=== PATIENT | female | born 1955 | race Caucasian/White ===

== ENCOUNTER 2023-10-04 22:03 | Inpatient (IN) | payer MEDICARE, SELFPAY ==
[2023-10-04 15:33] VITALS: BP 117/60
[2023-10-04 15:59] LABS: % Basophils 0.4 % (0-2); % Eosinophils 1.1 % (0-6); % Immature Granulocytes 0.6 % (0-0.5); % Lymphocytes 16.4 % (20.5-51.1); % Monocytes 8.9 % (1.7-9.3); % Neutrophils 72.6 % (42.2-75.2); Absolute Eosinophils 0.1 10^3/uL (0-0.7); Absolute Immature Granulocytes 0.1 10^3/uL (0-0.05); Absolute Lymphocytes 1.5 10^3/uL (1.2-3.4); Absolute Monocytes 0.8 10^3/uL (0.1-0.6); Absolute Neutrophils 6.7 10^3/uL (1.4-6.5); Hematocrit 33.7 % (37.0-47.0); Hemoglobin 11.5 g/dL (12.0-16.0); Mean Corp Hgb Conc. 34.1 g/dL (33.0-37.0); Mean Corpuscular Hgb 29.9 pg (27.0-31.0); Mean Corpuscular Volume 87.5 fL (81.0-99.0); Mean Platelet Volume 9.4 fL (7.4-10.4); Nucleated Red Blood Cells % 0 %; Platelet Count 246 10^3/uL (130-400); Red Blood Cell Count 3.85 10^6/uL (4.20-5.40); Red Cell Dist. Width 12.7 % (11.5-14.5); White Blood Cell Count 9.3 10^3/uL (4.8-10.8)
[2023-10-04 16:04] LABS: Lactic Acid 1.7 mmol/L (0.7-2.0)
[2023-10-04 16:15] LABS: ALT (SGPT) 24 U/L (0-35); AST (SGOT) 22 U/L (14-36); Albumin 4.1 g/dl (3.5-5.0); Alkaline Phosphatase 74 U/L (38-126); Blood Urea Nitrogen 32 mg/dl (7-17); Calcium 9.6 mg/dl (8.4-10.2); Carbon Dioxide 23 mmol/L (22-30); Chloride 97 mmol/L (98-107); Glucose 122 mg/dl (70-99); Potassium 3.9 mmol/L (3.5-5.1); Sodium 131 mmol/L (135-145); Total Bilirubin 0.5 mg/dl (0.2-1.3); Total Protein 7.1 g/dl (6.3-8.2); eGFR > 60.00
[2023-10-04 19:48] VITALS: BMI 35.2
[2023-10-04 19:49] VITALS: BP 147/68
--- NOTE | 2023-10-04 19:53 | ED.SKININJ ---
HPI-Injury
General
Chief Complaint: Bite
Source: patient
Exam Limitations: none
Time Seen by Provider: 10/04/23 19:40
Nursing documentation reviewed up to this point in time: agreed with
Travel History
Have you had any contact with someone who has COVID-19?: No
Do you have any symptoms of coronavirus? Fever > 100 degrees, chills, cough, shortness of breath, sore throat, loss of taste or smell, muscle aches, or headache?: No
History of Present Illness-Injury
Is this injury a work related problem?: No
Is pt an associate of [facility]?: No
Initial Injury comments:
Patient to ED with complaint of pain redness swelling and drainage to left forearm. According to patient she was bit by her cat. Sustained 2 punctures to her left dorsal forearm. Over the weekend the area began to get red and swollen. She was
evaluated at and placed on zithromax. States are continues to worsen. She reports a low grade fever. No chills. Cat is UTD with rabies series, she is UTD with Td. Brought self to ED.
Past History
Past History
ED Past Medical History: HTN and NIDDM
Review of Systems
Review of Systems
Allergies reviewed?: Yes
All Other Systems: ROS reviewed and negative except as documented in HPI and ROS
Constitutional: Reports fever (reports low grade temp (100.2) at home)
Musculoskeletal: Reports joint pain (pain to left forearm)
Skin: Reports other (2 punctures noted left dorsal forearm. +swelling and discharge. Surrounding erythema. )
Neurological: Reports no symptoms
Psychiatric: Reports no symptoms
Skin Exam
Bite
Left Lower Dorsal Arm:
Type: animal
Skin has: puncture wounds
Surrounding area around bite has: marked local erythema and draining purulent fluid
Distal skin color and temperature: normal-warm & good color
Normal distal neurovascular exam: Yes
Phy Exam
General Physical Exam
General Presentation: well appearing and mild distress
General age: appears stated age
General Skin: warm and dry
General Habitus: normal
General Mental: alert
Musculoskeletal Exam
Musculoskeletal Exam: full ROM and neuro vasc intact
Skin Exam
Skin Exam: warm/dry and other (cat bite to left forearm with pain swelling erythema drainage. Culture obtained.)
Psychiatric Exam
Psychiatric Exam: normal mood/affect
Course
Orders/Labs/Results
Orders:
Orders
10/04/23 15:46
Complete Blood Count/With Diff Urgent
Comprehensive Metabolic Panel Urgent
Lactic Acid Q4H
Comment: ON ICE, CANCEL 2ND ORDER IF FIRST LACTIC ACID LEVEL <2
Blood Culture Q30M
YUE Source: Blood/Venous
Specimen Description:
Comment: FROM 2 SEPARATE SITES
10/04/23 19:48
Forearm, Left 2 View [CR Forearm - Left 2 View] Urgent
Comment:
Reason For Exam: cellulitis
10/04/23 19:59
Blood Culture Q30M
YUE Source: Blood/Venous
Specimen Description:
Comment: FROM 2 SEPARATE SITES
Wound Culture [Wound/Abscess/Other Culture] Urgent
YUE Source: Arm
Specimen Description: Left
Date Specimen was Collected: 10/04/23
Time Specimen was Collected: 19:54
10/04/23 20:08
Ampicillin/Sulbactam 3 G [Unasyn] 3 gm 0.9% Sodium Chloride 100 ml [Nss] 100 ml IV NOW
10/04/23 21:01
Naproxen [Naprosyn] 500 mg PO NOW STA
10/04/23 21:04
Admit/Transfer Patient As Directed
Co-Sign Provider:
Level of Care: Inpatient admission
Assign to:: Medical/Surgical
Physician / Group: karyn
Diagnosis: cat bite cellulitis
Reason for Hospitalization: cat bite cellulitis
Expected length of stay greater than two midnights?: Yes
ELOS- Estimated Length of Stay in days: 2
I certify the patient meets the requirements for IP care: Yes
Code Status As Directed
Resuscitation Status: Full Code
Abnormal Lab Results
10/04/23
15:46
RBC 3.85 L 10^6/uL
(4.20-5.40)
Hgb 11.5 L g/dL
(12.0-16.0)
Hct 33.7 L %
(37.0-47.0)
Abs Immat Gran (auto) 0.1 H 10^3/uL
(0-0.05)
Absolute Neuts (auto) 6.7 H 10^3/uL
(1.4-6.5)
Absolute Monos (auto) 0.8 H 10^3/uL
(0.1-0.6)
Immature Gran % 0.6 H %
(0-0.5)
Lymphocytes % 16.4 L %
(20.5-51.1)
Sodium 131 L mmol/L
(135-145)
Chloride 97 L mmol/L
(98-107)
BUN 32 H mg/dl
(7-17)
Glucose 122 H mg/dl
(70-99)
10/04/23 15:46
10/04/23 15:46
Vital Signs
Initial and Last Documented VS:
Initial Vital Signs
Temp Pulse Resp BP Pulse Ox
99.9 F 98 98 117/60 98
10/04/23 15:33 10/04/23 15:33 10/04/23 15:33 10/04/23 15:33 10/04/23 15:33
Last Documented Vital Signs
Temp Pulse Resp BP Pulse Ox
99.9 F 98 98 125/69 96
10/04/23 15:33 10/04/23 15:33 10/04/23 15:33 10/04/23 21:39 10/04/23 21:00
*Radiology
Radiology exam reviewed: radiology read reviewed
*Pulse Oximetry
Patient hypoxic: no
*Critical Care Note
Total Time (30-74mins, 75-104mins- exclusive of procedures): Not Applicable
ED Attending Note
-
Portions of this chart may have been created with voice recognition software.� Occasional wrong word or��sound alike� substitutions may have occurred due to the inherent limitations of voice recognition software.
Discharge Plan
Departure
Patient Disposition: Admit
Date of Disposition: 10/04/23
Time of Disposition: 19:59
Presentation/result/management discussed w/ accepting MD/DO: Hospitalist
Patient with high blood pressure during this ER visit?: No
Condition: Fair
Discharge Problem:
Cellulitis of forearm, left, Cat bite of left forearm
Interventions
Interventions:
*Risk Screen - Suicide Last Done: 10/04/23 19:48
*General Assessment Last Done: 10/04/23 19:48
*Neglect/Abuse Screening Last Done: 10/04/23 19:48
ED- Fall Risk Assessment Last Done: 10/04/23 19:48
*ED COVID-19 Vaccine History Last Done: 10/04/23 19:48
ED-Skin Assessment Last Done: 10/04/23 19:48
[2023-10-04] MEDS: UNASYN IV (20:41)
--- NOTE | 2023-10-04 21:08 | HPS.HSE ---
Family Physician
-
Family Physician: * NONE
Chief Complaint
-
cat bite infection
History of Present Illness
67-year-old female past medical history of hypertension, diabetes, bipolar disorder, restless leg syndrome presenting with pain, redness and swelling and drainage to the left forearm. She was bit by her cat and sustained 2 punctures to the left
dorsal forearm 10 days ago. 3 days ago the area began to get red and swollen. She went to urgent care and was started on Zithromax. Symptoms continue to worsen. She has had low-grade fever without chills.
Cat is up-to-date with rabies series. She is up-to-date with tetanus vaccine.
She is a former smoker. She denies alcohol use.
Medical History
Past Medical History
Past Medical History: Reports Other (hypertension, diabetes, bipolar disorder, restless leg syndrome )
Past Surgical History: Reports None
Social History
Tobacco: Former Smoker
Alcohol: None
Drug: None
Family History
Family History: Not pertinent
Allergies / Home Medications
Allergies reflects when Allergies were last updated in [employer].
Home Medications with original date entered in [facility]
Allergy/Medication List:
Allergies
Allergy/AdvReac Type Severity Reaction Status Date / Time
No Known Allergies Allergy Unverified 10/04/23 15:33
Home Medications
azithromycin 250 mg tablet 250 mg PO DAILY 10/04/23
cariprazine 1.5 mg capsule (Vraylar) 1.5 mg PO DAILY 10/04/23
citalopram 40 mg tablet 40 mg PO HS 10/04/23
glyburide 5 mg-metformin 500 mg tablet 1 tab PO BID 10/04/23
primidone 50 mg tablet 100 mg PO BID 10/04/23
quetiapine 100 mg tablet 200 mg PO HS 10/04/23
ropinirole 2 mg tablet 2 - 3 mg PO BID PRN restless legs 10/04/23
ropinirole 3 mg tablet 3 mg PO HS 10/04/23
semaglutide 0.25 mg or 0.5 mg (2 mg/3 mL) subcutaneous pen injector (Ozempic) 1 mg SC WE 10/04/23
telmisartan 40 mg tablet 40 mg PO DAILY 10/04/23
triamterene 37.5 mg-hydrochlorothiazide 25 mg tablet 1 tab PO DAILY 10/04/23
Review of Systems
-
History Source: Patient
A 12 point ROS was completed and negative except as noted: Yes
Constitutional: Reports No Symptoms
EENT: Reports No Symptoms
Respiratory: Reports No Symptoms
Cardiac: Reports No Symptoms
Abdomen/GI: Reports No Symptoms
: Reports No Symptoms
Musculoskeletal: Reports No Symptoms
Skin: Reports See HPI
Neurological: Reports No Symptoms
Endocrine: Reports No Symptoms
Hematologic/Lymphatic: Reports No Symptoms
Psych: Reports No Symptoms
Physical Exam
Vital Signs
Vital Signs
Temp Pulse Resp BP Pulse Ox
99.9 F 98 98 147/68 99
10/04/23 15:33 10/04/23 15:33 10/04/23 15:33 10/04/23 19:49 10/04/23 19:48
Physical Exam
General: Well Developed, Well Nourished and No Apparent Distress
HEENT: NormoCephalic, Moist mucous membranes and Atraumatic
Respiratory: Clear
Cardiac: S1/S2 and Regular Rhythm; No Murmur or Rub
GI: Soft, Non Tender, Non Distended and Normal Bowel Sounds; No Organomegaly
Rectal: Deferred by Provider
Musculoskeletal: No Clubbing, No Cyanosis and No Edema
Skin: Other (left forearm puncture wound with surrounding erythema , swelling and redness ); No Rash
Neuro: Nonfocal/grossly intact
Laboratory Results
-
10/04/23 15:46
10/04/23 15:46
Laboratory Results
Lactic Acid Cancelled 10/04/23 19:45
Total Bilirubin 0.5 mg/dl (0.2-1.3) 10/04/23 15:46
AST 22 U/L (14-36) 10/04/23 15:46
ALT 24 U/L (0-35) 10/04/23 15:46
Alkaline Phosphatase 74 U/L (38-126) 10/04/23 15:46
Data Reviewed
-
Lab Data: Labs Reviewed by me
Old Records: Reviewed
Impression/Plan
-
IMPRESSION:
PLAN:
# Cat bite cellulitis of left forearm with possible abscess
-Puncture site is open and draining purulent discharge which was expressed at urgent care and continuing to drain
-X-ray of forearm pending
-Blood cultures
-Wound culture
-Unasyn
-Tylenol, Aleve for pain
Essential hypertension
-Continue triamterene/hydrochlorothiazide, telmisartan
Type 2 diabetes
-Continue glyburide, metformin
-Insulin sliding
Bipolar depression
-Continue Seroquel, citalopram, Vraylar
Restless leg syndrome
-Continue ropinirole, primidone
Full code
DVT prophylaxis�heparin
Regular diet
[2023-10-04] MEDS: NAPROSYN 500 MG PO (21:09)
[2023-10-04 21:39] VITALS: BP 125/69
[2023-10-05] VITALS (7 sets, daily range): BP systolic 100–134; BP diastolic 49–78; BMI 34.8
[2023-10-05] MEDS: CELEXA 40 MG PO ×2 (00:25→23:09)
[2023-10-05] MEDS: REQUIP 3 MG PO ×2 (00:25→23:09)
[2023-10-05] MEDS: SEROQUEL 200 MG PO ×2 (00:26→22:26)
[2023-10-05] MEDS: UNASYN IV ×5 (01:53→22:26)
[2023-10-05 06:07] LABS: % Basophils 0.7 % (0-2); % Eosinophils 2.7 % (0-6); % Immature Granulocytes 0.3 % (0-0.5); % Lymphocytes 32.4 % (20.5-51.1); % Monocytes 11.3 % (1.7-9.3); % Neutrophils 52.6 % (42.2-75.2); Absolute Eosinophils 0.2 10^3/uL (0-0.7); Absolute Lymphocytes 1.9 10^3/uL (1.2-3.4); Absolute Monocytes 0.7 10^3/uL (0.1-0.6); Absolute Neutrophils 3.1 10^3/uL (1.4-6.5); Hematocrit 31.2 % (37.0-47.0); Hemoglobin 10.5 g/dL (12.0-16.0); Mean Corp Hgb Conc. 33.7 g/dL (33.0-37.0); Mean Corpuscular Hgb 29.6 pg (27.0-31.0); Mean Corpuscular Volume 87.9 fL (81.0-99.0); Mean Platelet Volume 9.5 fL (7.4-10.4); Nucleated Red Blood Cells % 0 %; Platelet Count 206 10^3/uL (130-400); Red Blood Cell Count 3.55 10^6/uL (4.20-5.40); Red Cell Dist. Width 12.5 % (11.5-14.5); White Blood Cell Count 5.8 10^3/uL (4.8-10.8)
[2023-10-05 06:23] LABS: ALT (SGPT) 20 U/L (0-35); AST (SGOT) 26 U/L (14-36); Albumin 3.6 g/dl (3.5-5.0); Alkaline Phosphatase 57 U/L (38-126); Blood Urea Nitrogen 38 mg/dl (7-17); Calcium 9.4 mg/dl (8.4-10.2); Carbon Dioxide 22 mmol/L (22-30); Chloride 101 mmol/L (98-107); Estimated Creatinine Clearance 75 ml/min; Glucose 97 mg/dl (70-99); Potassium 3.6 mmol/L (3.5-5.1); Sodium 134 mmol/L (135-145); Total Bilirubin 0.7 mg/dl (0.2-1.3); Total Protein 6.5 g/dl (6.3-8.2); eGFR > 60.00
[2023-10-05] MEDS: COZAAR 50 MG PO (09:25)
[2023-10-05] MEDS: GLUCOPHAGE 500 MG PO ×2 (09:26→18:23)
[2023-10-05] MEDS: DYAZIDE 1 CAPSULE PO (09:26)
[2023-10-05] MEDS: HEPARIN 5000 UNITS SC ×2 (09:26→22:26)
[2023-10-05] MEDS: MICRONASE 5 MG PO ×2 (09:27→18:24)
[2023-10-05] MEDS: MYSOLINE 100 MG PO ×2 (09:27→22:26)
--- NOTE | 2023-10-05 09:40 | W.PN.HOSP.TC ---
Today's Communication/Plan
-
I would continue her on IV Unasyn for at least another 24 hours given the appearance of the left forearm and amount of purulent drainage
Does not seem to have systemic involvement
Monitor white count await culture results
Assessment / Plan
Assessment / Plan
67-year-old female past medical history of hypertension, diabetes, bipolar disorder, restless leg syndrome presenting with pain, redness and swelling and drainage to the left forearm. She was bit by her cat and sustained 2 punctures to the left
dorsal forearm 10 days ago. 3 days ago the area began to get red and swollen. She went to urgent care and was started on Zithromax. Symptoms continue to worsen. She has had low-grade fever without chills.
Cat is up-to-date with rabies series. She is up-to-date with tetanus vaccine.
She is a former smoker. She denies alcohol use.
# Cat bite cellulitis of left forearm with possible abscess
-Puncture site is open and draining purulent discharge which was expressed at urgent care and continuing to drain
-X-ray of forearm no evidence of fracture or evidence of bone involvement such as osteomyelitis indicative of cellulitis only
-Blood cultures pending
-Wound culture pending
-Unasyn
-Tylenol, Aleve for pain
Essential hypertension
-Continue triamterene/hydrochlorothiazide, telmisartan
Type 2 diabetes
-Continue glyburide, metformin also on semaglutide
-Insulin sliding
Bipolar depression
-Continue Seroquel, citalopram, Vraylar
Restless leg syndrome
-Continue ropinirole, primidone
Full code
DVT prophylaxis�heparin
Regular diet
Anticipated Discharge: Within 24 hours
Subjective/Interval History
-
Date of Service: October 05, 2023
Pain referred to the left forearm (although less induration and redness is noted still swollen and with draining purulence
Objective Data
-
Labs:
Laboratory Results
10/05/23 10/05/23
05:46 05:47
WBC 5.8
Hgb 10.5 L
Hct 31.2 L
Plt Count 206
Sodium 134 L
Potassium 3.6
Chloride 101
Carbon Dioxide 22
BUN 38 H
Creatinine 0.8
Glucose 97
Calcium 9.4
Total Bilirubin 0.7
AST 26
ALT 20
Alkaline Phosphatase 57
Vital Signs:
Vital Signs
Temp Pulse Resp BP Pulse Ox
97.4 F 74 18 128/71 98
10/05/23 09:21 10/05/23 09:25 10/05/23 09:21 10/05/23 09:25 10/05/23 09:21
Review of Systems
-
History Source: Patient
Respiratory: Reports No Symptoms
Cardiac: Reports No Symptoms
Musculoskeletal: Reports Edema
Skin: Reports Sores
Physical Exam
-
General: Well Developed
HEENT: Normocephalic
Respiratory: Clear to Auscultation
Cardiac: Regular Rhythm
GI: Soft and Nontender
Musculoskeletal: Edema, Left Upper Extrem (Swollen tender erythematous area topical part of left forearm with puncture site of purulent drainage that is expressed with compression)
Skin: Rash and Ulcers
Psych: Calm
Data Reviewed
-
Total Time Spent with Patient (in minutes): 56
Labs: Labs Reviewed by me
[2023-10-05 10:01] LABS: Glucose - Point of Care 137 mg/dl (70-99)
[2023-10-05] MEDS: NOVOLOG FLEXPEN-LOW RESISTANCE SC ×3 (10:06→16:56)
[2023-10-05 13:43] LABS: Glucose - Point of Care 97 mg/dl (70-99)
[2023-10-05 16:55] LABS: Glucose - Point of Care 122 mg/dl (70-99)
[2023-10-05 21:25] LABS: Glucose - Point of Care 76 mg/dl (70-99)
--- NOTE | 2023-10-05 23:14 | PTCARENOTE ---
Patient arrived from ED, able to walk into room without difficulty. Preferred to remain in her own clothing, refused gown. RFA wound red/warm to touch and weeping sanguinous fluid from 2 puncture caputo. Wound cleansed and dressed. Patient
participated in admission/good historian.
[2023-10-06] MEDS: UNASYN IV ×4 (03:49→21:40)
[2023-10-06 06:20] LABS: Hematocrit 31.8 % (37.0-47.0); Hemoglobin 11.1 g/dL (12.0-16.0); Mean Corp Hgb Conc. 34.9 g/dL (33.0-37.0); Mean Corpuscular Hgb 30.2 pg (27.0-31.0); Mean Corpuscular Volume 86.6 fL (81.0-99.0); Mean Platelet Volume 9.6 fL (7.4-10.4); Platelet Count 222 10^3/uL (130-400); Red Blood Cell Count 3.67 10^6/uL (4.20-5.40); Red Cell Dist. Width 12.3 % (11.5-14.5); White Blood Cell Count 6.4 10^3/uL (4.8-10.8)
[2023-10-06 06:40] LABS: Calcium 9.5 mg/dl (8.4-10.2); Carbon Dioxide 28 mmol/L (22-30); Estimated Creatinine Clearance 66 ml/min; eGFR > 60.00
[2023-10-06 06:50] LABS: Blood Urea Nitrogen 39 mg/dl (7-17); Chloride 99 mmol/L (98-107); Glucose 72 mg/dl (70-99); Potassium 3.8 mmol/L (3.5-5.1); Sodium 137 mmol/L (135-145)
[2023-10-06 07:00] VITALS: BP 104/49
[2023-10-06 08:22] LABS: Glucose - Point of Care 119 mg/dl (70-99)
[2023-10-06] MEDS: NOVOLOG FLEXPEN-LOW RESISTANCE SC ×3 (09:01→16:49)
[2023-10-06] MEDS: HEPARIN 5000 UNITS SC ×2 (09:04→21:38)
[2023-10-06] MEDS: GLUCOPHAGE 500 MG PO ×2 (09:04→17:41)
[2023-10-06] MEDS: MICRONASE 5 MG PO ×2 (09:04→17:41)
[2023-10-06] MEDS: DYAZIDE 1 CAPSULE PO (09:04)
[2023-10-06] MEDS: COZAAR 50 MG PO (09:09)
[2023-10-06] MEDS: MYSOLINE 100 MG PO ×2 (09:09→21:39)
--- NOTE | 2023-10-06 11:12 | CM ---
CM met with at bedside
Pt lives alone in a cottage located on her sisters property
Independent, driving, independent adl's. shopping, meals
DME - has cane, does not use
SNF/HH - denies past history
Has ride at d/c
PCP - Dr Fer MADDEN
Pharm - [facility], mail order
CM will follow for d/c needs
Plan - anticipate home no needs vs with HH
[2023-10-06 12:06] LABS: Glucose - Point of Care 76 mg/dl (70-99)
--- NOTE | 2023-10-06 12:32 | CON.GS ---
Consultation
-
Performing Provider: Carol
Reason for Consultation: Left upper extremity abscess
Medical History
-
Chief Complaint: left upper extremity cat bite
History of Present Illness:
Patient is a 67-year-old female who states that she had a cat bite about 2 weeks ago. She was initially treating it with local wound care but then this past weekend it acutely became red, swollen, warm and tender to touch. She went to urgent care
center and was started on a Z-German. Her symptoms progressed despite being on antibiotics she returned to the urgent care and was subsequently referred for emergency department evaluation.
Patient was admitted to the hospital service 10/04/2023. Swelling improving but still present. There is still purulent drainage from the 2 open wounds along the left anterior forearm prompting surgical consultation today for possible drainage.
Past Medical History
Past Medical History: Other (Hypertension, diabetes, bipolar, restless leg syndrome)
Past Surgical History: None
Social History
Tobacco: Former Smoker
Alcohol: None
Family History
Family History: Reviewed & Not Pertinent
Allergies / Home Medications
Allergy/AdvReac Type Severity Reaction Status Date / Time
No Known Allergies Allergy Unverified 10/04/23 15:33
�Medication �Instructions �Recorded �Confirmed �Type
azithromycin 250 mg tablet 250 mg PO DAILY Infection 10/04/23 10/04/23 History
cariprazine 1.5 mg capsule 1.5 mg PO DAILY Neurological 10/04/23 10/04/23 History
(Vraylar) Condition
citalopram 40 mg tablet 40 mg PO HS Mental Health 10/04/23 10/04/23 History
glyburide 5 mg-metformin 500 mg 1 tab PO BID Diabetes 10/04/23 10/04/23 History
tablet
primidone 50 mg tablet 100 mg PO BID tremor 10/04/23 10/04/23 History
quetiapine 100 mg tablet 200 mg PO HS Neurological Condition 10/04/23 10/04/23 History
ropinirole 2 mg tablet 2 - 3 mg PO BID PRN restless legs 10/04/23 10/04/23 History
ropinirole 3 mg tablet 3 mg PO HS Neurological Condition 10/04/23 10/04/23 History
semaglutide 0.25 mg or 0.5 mg (2 1 mg SC WE Diabetes 10/04/23 10/04/23 History
mg/3 mL) subcutaneous pen injector
(Ozempic)
telmisartan 40 mg tablet 40 mg PO DAILY Blood Pressure 10/04/23 10/04/23 History
triamterene 37.5 1 tab PO DAILY Blood Pressure 10/04/23 10/04/23 History
mg-hydrochlorothiazide 25 mg tablet
Review of Systems
-
A 10 point review of systems was completed, and was negative except as per HPI.
Physical Exam
Vital Signs
Temp Pulse Resp BP Pulse Ox
97.8 F 66 18 104/49 98
10/06/23 07:00 10/06/23 07:00 10/06/23 07:00 10/06/23 07:00 10/06/23 07:00
10/05/23 10/06/23 10/07/23
06:59 06:59 06:59
Actual Weight 90.2 kg 88.995 kg
Body Mass Index (BMI) 34.8
Lab Results
10/06/23 05:50
10/06/23 05:50
WBC 6.4 10^3/uL (4.8-10.8) 10/06/23 05:50
Hgb 11.1 g/dL (12.0-16.0) L 10/06/23 05:50
Hct 31.8 % (37.0-47.0) L 10/06/23 05:50
Plt Count 222 10^3/uL (130-400) 10/06/23 05:50
Abs Immat Gran (auto) 0.0 10^3/uL (0-0.05) 10/05/23 05:47
Neutrophils % 52.6 % (42.2-75.2) 10/05/23 05:47
Physical Exam
General: Well Developed, Well Nourished, No Apparent Distress and Comfortable
Respiratory: Non Labored Respirations
Skin: Other (Left upper extremity anterior forearm: 2 puncture wounds through the dermis with fluctuance between them and surrounding induration/erythema. Purulence expressed on palpation.)
Neuro: AO x 3
Psych: Calm
Data Reviewed
-
Radiology: Image Personally Visualized and interpreted (Left upper extremity forearm x-rays: No acute fracture or dislocation. Moderate diffuse soft tissue swelling. No osteomyelitis.)
Assessment / Plan
-
Assessment: 67-year-old female with cat bite and resultant cellulitis/abscess within the subcutaneous tissues.
Given fluctuance and purulent expression on examination between the 2 skin puncture sites recommended bedside incision and drainage for more definitive control of the subcutaneous abscess. Patient in agreement.
The anticipated procedure was fully reviewed in detail with the patient prior to procedure obtaining verbal informed consent.
Plan: Bedside I&D
The area of fluctuance and induration was sterilely prepped with Betadine
10 mL 1% lidocaine with epinephrine utilized for local field block
Utilizing an 11 blade the bridge of tissue between the 2 puncture sites was incised entering into a small but deep subcutaneous abscess cavity which was evacuated and irrigated out with sterile saline.
Saline gauze 4x4 packing and dry gauze dressing applied and wrapped.
New cultures not obtained as emergency department cultures with positive results
Will remove packing and check on I&D site tomorrow
--- NOTE | 2023-10-06 13:34 | W.PN.HOSP.TC ---
Today's Communication/Plan
-
Continue dressing and IV antibiotic, discharge tomorrow on oral antibiotic
Assessment / Plan
Assessment / Plan
67-year-old female past medical history of hypertension, diabetes, bipolar disorder, restless leg syndrome presenting with pain, redness and swelling and drainage to the left forearm. She was bit by her cat and sustained 2 punctures to the left
dorsal forearm 10 days ago. 3 days ago the area began to get red and swollen. She went to urgent care and was started on Zithromax. Symptoms continue to worsen. She has had low-grade fever without chills.
Cat is up-to-date with rabies series. She is up-to-date with tetanus vaccine.
She is a former smoker. She denies alcohol use.
# Cat bite cellulitis of left forearm with possible abscess
-Puncture site is open and draining purulent discharge which was expressed at urgent care and continuing to drain
-X-ray of forearm no evidence of fracture or evidence of bone involvement such as osteomyelitis indicative of cellulitis only
-Blood cultures pending
-Wound culture pending
-Unasyn
-Tylenol, Aleve for pain
10/05
Patient with significant right forearm abscess and fluctuation.
Seen by general surgery status post bedside incision and drainage.
Plan to continue dressing and discharge on oral antibiotics tomorrow.
Essential hypertension
-Continue triamterene/hydrochlorothiazide, telmisartan
Type 2 diabetes
-Continue glyburide, metformin also on semaglutide
-Insulin sliding
Bipolar depression
-Continue Seroquel, citalopram, Vraylar
Restless leg syndrome
-Continue ropinirole, primidone
Full code
DVT prophylaxis�heparin
Regular diet
Anticipated Discharge: Within 24 hours
Subjective/Interval History
-
Date of Service: October 06, 2023
Patient seen and examined at bedside, denies any chest pain or shortness of breath, no abdominal pain, no nausea, no vomiting, no diarrhea or constipation.
Seen by general surgery, status post incision and drainage at bedside.
Continue dressing change and possible discharge tomorrow.
Objective Data
-
Labs:
Laboratory Results
10/06/23
05:50
WBC 6.4
Hgb 11.1 L
Hct 31.8 L
Plt Count 222
Sodium 137
Potassium 3.8
Chloride 99
Carbon Dioxide 28
BUN 39 H
Creatinine 0.9
Glucose 72
Calcium 9.5
Vital Signs:
Vital Signs
Temp Pulse Resp BP Pulse Ox
97.8 F 66 18 104/49 98
10/06/23 07:00 10/06/23 07:00 10/06/23 07:00 10/06/23 07:00 10/06/23 07:00
I&O
10/05/23 10/06/23 10/07/23
06:59 06:59 06:59
Intake Total 720 / 720
Balance 720 / 720
Physical Exam
-
General: Well Developed and No Apparent Distress
HEENT: Normocephalic, Atraumatic and Moist Mucous Membranes
Respiratory: Clear to Auscultation
Cardiac: Regular Rhythm and S1/S2; Negative Murmur, Rub or Gallop
GI: Soft, Nontender, Nondistended and Normal Bowel Sounds; Negative Organomegaly
Rectal: Deferred by Provider
Musculoskeletal: No Clubbing, No Cyanosis, No Edema and Other (Right forearm abscess)
Skin: Negative Rash
Neuro: Nonfocal/Grossly Intact
[2023-10-06] MEDS: NAPROSYN 500 MG PO ×2 (14:22→22:42)
[2023-10-06] MEDS: REQUIP 2 MG PO (14:23)
[2023-10-06 15:00] VITALS: BP 99/50
[2023-10-06 16:27] LABS: Glucose - Point of Care 121 mg/dl (70-99)
[2023-10-06 21:38] LABS: Glucose - Point of Care 110 mg/dl (70-99)
[2023-10-06] MEDS: SEROQUEL 200 MG PO (21:40)
[2023-10-06] MEDS: CELEXA 40 MG PO (21:40)
[2023-10-06] MEDS: REQUIP 3 MG PO (21:40)
[2023-10-06] MEDS: FLUSH (NSS) 2 FLUSH IV (21:41)
[2023-10-06 23:03] VITALS: BP 109/48
[2023-10-07] MEDS: UNASYN IV ×4 (04:24→22:00)
[2023-10-07] MEDS: FLUSH (NSS) 1 FLUSH IV (04:25)
[2023-10-07] MEDS: TYLENOL 650 MG PO ×3 (05:15→22:06)
[2023-10-07 07:30] VITALS: BP 101/55
[2023-10-07 07:47] LABS: Glucose - Point of Care 170 mg/dl (70-99)
[2023-10-07] MEDS: NOVOLOG FLEXPEN-LOW RESISTANCE 1 UNITS SC (08:40)
[2023-10-07] MEDS: MICRONASE 5 MG PO ×2 (08:41→18:35)
[2023-10-07] MEDS: GLUCOPHAGE 500 MG PO ×2 (08:41→18:30)
[2023-10-07] MEDS: HEPARIN 5000 UNITS SC ×2 (08:42→21:58)
[2023-10-07] MEDS: MYSOLINE 100 MG PO ×2 (08:43→21:58)
[2023-10-07] MEDS: COZAAR PO (08:44)
[2023-10-07] MEDS: DYAZIDE PO (08:45)
--- NOTE | 2023-10-07 09:22 | W.PN.GS2 ---
Today's Communication / Plan
-
Dressing changes
Ortho/hand consult
Assessment / Plan
-
Assessment: 67-year-old right hand dominant diabetic female with cat bite 2 weeks ago and resultant cellulitis/abscess within the subcutaneous tissues.
PPD #1 bedside incision and drainage for more definitive control of the subcutaneous abscess.
Difficulty with clenching fist, tendon exposed with purulent drainage. ?tenosynovitis.
Afebrile, no leukocytosis on previous labs
Plan:
Will consult hand surgery to follow given tendon involvement
BID dressing changes
C/W antibiotics
Analgesics prn
Continue heparin sq for VTE ppx
Subjective Data
-
Date of Service: October 07, 2023
Patient seen and examined at bedside with Dr. Garcia. Pain to site with manipulation. Difficulty closing fist. Throbbing discomfort to site.
Objective Data
-
Intake and Output
10/06/23 10/07/23 10/08/23
06:59 06:59 06:59
Intake Total 720 / 720 1000 / 1000
Balance 720 / 720 1000 / 1000
Intake:
Oral fluids 480 / 480 720 / 720
IV fluids (Total) 0 / 0
IV piggybacks 240 / 240 280 / 280
Other:
Number of approximated MODERATE 2 5
amounts of urine
Vital Signs
Temp Pulse Resp BP Pulse Ox
98.2 F 65 18 101/55 99
10/07/23 07:30 10/07/23 08:44 10/07/23 07:30 10/07/23 08:44 10/07/23 07:30
Lab Results
10/06/23 05:50
10/06/23 05:50
Calcium 9.5 mg/dl (8.4-10.2) 10/06/23 05:50
Total Bilirubin 0.7 mg/dl (0.2-1.3) 10/05/23 05:46
AST 26 U/L (14-36) 10/05/23 05:46
ALT 20 U/L (0-35) 10/05/23 05:46
Alkaline Phosphatase 57 U/L (38-126) 10/05/23 05:46
Total Protein 6.5 g/dl (6.3-8.2) 10/05/23 05:46
Albumin 3.6 g/dl (3.5-5.0) 10/05/23 05:46
Physical Exam
-
NAD
Left wrist wound changed. Approx 2' long and tunnelling down to exposed tendon, purulent drainage noted and wound cleansed and repacked.
[2023-10-07] MEDS: TORADOL 10 MG IV ×2 (10:06→16:46)
--- NOTE | 2023-10-07 11:31 | CM ---
Case management following for d/c planning
Chart reviewed and met with pt
PPD #1 bedside incision and drainage of subcutaneous abscess
Consult to hand surgery
Dressing changes 2x/day
antibiotics
CM will follow for d/c needs
Plan - anticipate home with HH
[2023-10-07 11:33] LABS: Glucose - Point of Care 108 mg/dl (70-99)
[2023-10-07] MEDS: NOVOLOG FLEXPEN-LOW RESISTANCE SC (11:38)
--- NOTE | 2023-10-07 15:09 | W.PN.HOSP.TC ---
Today's Communication/Plan
-
Orthopedic consult
Assessment / Plan
Assessment / Plan
67-year-old female past medical history of hypertension, diabetes, bipolar disorder, restless leg syndrome presenting with pain, redness and swelling and drainage to the left forearm. She was bit by her cat and sustained 2 punctures to the left
dorsal forearm 10 days ago. 3 days ago the area began to get red and swollen. She went to urgent care and was started on Zithromax. Symptoms continue to worsen. She has had low-grade fever without chills.
Cat is up-to-date with rabies series. She is up-to-date with tetanus vaccine.
She is a former smoker. She denies alcohol use.
# Cat bite cellulitis of left forearm with possible abscess
-Puncture site is open and draining purulent discharge which was expressed at urgent care and continuing to drain
-X-ray of forearm no evidence of fracture or evidence of bone involvement such as osteomyelitis indicative of cellulitis only
-Blood cultures pending
-Wound culture pending
-Unasyn
-Tylenol, Aleve for pain
10/05
Patient with significant right forearm abscess and fluctuation.
Seen by general surgery status post bedside incision and drainage.
Plan to continue dressing and discharge on oral antibiotics tomorrow.
10/06
Surgery recommending orthopedic consult, pending
Essential hypertension
-Continue triamterene/hydrochlorothiazide, telmisartan
Type 2 diabetes
-Continue glyburide, metformin also on semaglutide
-Insulin sliding
Bipolar depression
-Continue Seroquel, citalopram, Vraylar
Restless leg syndrome
-Continue ropinirole, primidone
Full code
DVT prophylaxis�heparin
Regular diet
Anticipated Discharge: 24 - 48 hours
Subjective/Interval History
-
Date of Service: October 07, 2023
Patient seen and examined at bedside, denies any chest pain or shortness of breath, no abdominal pain, no nausea, no vomiting, no diarrhea or constipation.
Status post incision and drainage and dressing change today
Surgery team recommending orthopedic consult.
Objective Data
-
Vital Signs:
Vital Signs
Temp Pulse Resp BP Pulse Ox
98.2 F 65 18 101/55 99
10/07/23 07:30 10/07/23 08:44 10/07/23 07:30 10/07/23 08:44 10/07/23 07:30
I&O
10/06/23 10/07/23 10/08/23
06:59 06:59 06:59
Intake Total 720 / 720 1000 / 1000
Balance 720 / 720 1000 / 1000
Physical Exam
-
General: Well Developed and No Apparent Distress
HEENT: Normocephalic, Atraumatic and Moist Mucous Membranes
Respiratory: Clear to Auscultation
Cardiac: Regular Rhythm and S1/S2; Negative Murmur, Rub or Gallop
GI: Soft, Nontender, Nondistended and Normal Bowel Sounds; Negative Organomegaly
Rectal: Deferred by Provider
Musculoskeletal: No Clubbing, No Cyanosis, No Edema and Other (Right forearm abscess dressed)
Skin: Negative Rash
Neuro: Nonfocal/Grossly Intact
[2023-10-07 15:12] VITALS: BP 99/51
--- NOTE | 2023-10-07 15:29 | W.PN.UPDATE ---
Addendum entered and electronically signed by John Talley MD 10/07/23 17:16:
Patient seen and examined
The erythema is contained near the wound with no drainage.
There is full AROM of the fingers with no significant pain
Agree with wet to dry and healing by secondary intention.
Recommend BID wet to dry
OK to switch to PO Augmentin
Follow up in the office in 7-10 days upon discharge
Original Note:
Update Note
Progress Note Update
Full orthopedic consult dictated:
Dx: Left forearm cat bite with infection/status post bedside I&D October 06, 2023 by general surgery
Plan: Left forearm wound has bloody drainage with no evidence of purulence today. Erythema improved nicely. She does have full range of motion with flexion and extension at the wrist. She is able to make a near complete composite fist.
Distal neurovascular was intact. She has been afebrile and white count normal. Cultures have grown Pasteurella multocida currently on Unasyn. Wet to dry dressings placed. Multiple pictures sent to Dr. Talley for his input.
[2023-10-07 16:38] LABS: Glucose - Point of Care 213 mg/dl (70-99)
[2023-10-07] MEDS: REQUIP 2 MG PO (16:47)
[2023-10-07] MEDS: NOVOLOG FLEXPEN-LOW RESISTANCE 2 UNITS SC (18:30)
[2023-10-07 21:21] LABS: Glucose - Point of Care 124 mg/dl (70-99)
[2023-10-07] MEDS: CELEXA 40 MG PO (21:59)
[2023-10-07] MEDS: SEROQUEL 200 MG PO (21:59)
[2023-10-07] MEDS: REQUIP 3 MG PO (21:59)
[2023-10-07 23:33] VITALS: BP 108/49
[2023-10-08] MEDS: UNASYN IV ×2 (04:05→09:52)
[2023-10-08] MEDS: TORADOL 10 MG IV (04:06)
[2023-10-08 07:14] VITALS: BP 139/68
[2023-10-08 07:21] LABS: Glucose - Point of Care 130 mg/dl (70-99)
[2023-10-08 07:48] LABS: Hematocrit 31.7 % (37.0-47.0); Hemoglobin 11.2 g/dL (12.0-16.0); Mean Corp Hgb Conc. 35.3 g/dL (33.0-37.0); Mean Corpuscular Hgb 30.9 pg (27.0-31.0); Mean Corpuscular Volume 87.6 fL (81.0-99.0); Mean Platelet Volume 9.6 fL (7.4-10.4); Platelet Count 223 10^3/uL (130-400); Red Blood Cell Count 3.62 10^6/uL (4.20-5.40); Red Cell Dist. Width 12.2 % (11.5-14.5); White Blood Cell Count 4.8 10^3/uL (4.8-10.8)
[2023-10-08] MEDS: NOVOLOG FLEXPEN-LOW RESISTANCE SC ×2 (08:05→11:42)
[2023-10-08] MEDS: MYSOLINE 100 MG PO (08:07)
[2023-10-08] MEDS: DYAZIDE 1 CAPSULE PO (08:07)
[2023-10-08] MEDS: COZAAR 50 MG PO (08:07)
[2023-10-08] MEDS: GLUCOPHAGE 500 MG PO (08:07)
[2023-10-08] MEDS: HEPARIN 5000 UNITS SC (08:08)
[2023-10-08] MEDS: MICRONASE 5 MG PO (08:08)
[2023-10-08 11:24] LABS: Glucose - Point of Care 122 mg/dl (70-99)
--- NOTE | 2023-10-08 11:59 | W.PN.HOSP.TC ---
Today's Communication/Plan
-
Discharge home today
Assessment / Plan
Assessment / Plan
67-year-old female past medical history of hypertension, diabetes, bipolar disorder, restless leg syndrome presenting with pain, redness and swelling and drainage to the left forearm. She was bit by her cat and sustained 2 punctures to the left
dorsal forearm 10 days ago. 3 days ago the area began to get red and swollen. She went to urgent care and was started on Zithromax. Symptoms continue to worsen. She has had low-grade fever without chills.
Cat is up-to-date with rabies series. She is up-to-date with tetanus vaccine.
She is a former smoker. She denies alcohol use.
# Cat bite cellulitis of left forearm with possible abscess
-Puncture site is open and draining purulent discharge which was expressed at urgent care and continuing to drain
-X-ray of forearm no evidence of fracture or evidence of bone involvement such as osteomyelitis indicative of cellulitis only
-Blood cultures pending
-Wound culture pending
-Unasyn
-Tylenol, Aleve for pain
10/05
Patient with significant right forearm abscess and fluctuation.
Seen by general surgery status post bedside incision and drainage.
Plan to continue dressing and discharge on oral antibiotics tomorrow.
10/06
Surgery recommending orthopedic consult, pending
10/07
Discharge home today on Augmentin
Essential hypertension
-Continue triamterene/hydrochlorothiazide, telmisartan
Type 2 diabetes
-Continue glyburide, metformin also on semaglutide
-Insulin sliding
Bipolar depression
-Continue Seroquel, citalopram, Vraylar
Restless leg syndrome
-Continue ropinirole, primidone
Full code
DVT prophylaxis�heparin
Regular diet
Anticipated Discharge: Today
Subjective/Interval History
-
Date of Service: October 08, 2023
Patient seen and examined at bedside, denies any chest pain or shortness of breath, no abdominal pain, no nausea, no vomiting, no diarrhea or constipation.
Will for discharge by orthopedic and follow-up as outpatient.
Will be discharged today on Augmentin.
Objective Data
-
Labs:
Laboratory Results
10/08/23
07:23
WBC 4.8
Hgb 11.2 L
Hct 31.7 L
Plt Count 223
Vital Signs:
Vital Signs
Temp Pulse Resp BP Pulse Ox
97.7 F 69 16 139/68 98
10/08/23 07:14 10/08/23 08:07 10/08/23 07:14 10/08/23 08:07 10/08/23 07:14
I&O
10/07/23 10/08/23 10/09/23
06:59 06:59 06:59
Intake Total 1000 / 1000 1370 / 1370
Balance 1000 / 1000 1370 / 1370
Physical Exam
-
General: Well Developed and No Apparent Distress
HEENT: Normocephalic, Atraumatic and Moist Mucous Membranes
Respiratory: Clear to Auscultation
Cardiac: Regular Rhythm and S1/S2; Negative Murmur, Rub or Gallop
GI: Soft, Nontender, Nondistended and Normal Bowel Sounds; Negative Organomegaly
Rectal: Deferred by Provider
Musculoskeletal: No Clubbing, No Cyanosis, No Edema and Other (Right forearm abscess dressed)
Skin: Negative Rash
Neuro: Nonfocal/Grossly Intact
--- NOTE | 2023-10-08 12:11 | W.DCSUMMARY ---
Addendum entered and electronically signed by Roxanne Allen MD 10/27/23 19:11:
After careful study sepsis has been ruled out.
Original Note:
Discharge Summary
Discharge Data
Date of Admission: 10/04/23
Date of Discharge: 10/08/23
-
Pending Results: No
Hospital Course
67-year-old female past medical history of hypertension, diabetes, bipolar disorder, restless leg syndrome presenting with pain, redness and swelling and drainage to the left forearm. She was bit by her cat and sustained 2 punctures to the left
dorsal forearm 10 days ago. 3 days ago the area began to get red and swollen. She went to urgent care and was started on Zithromax. Symptoms continue to worsen. She has had low-grade fever without chills.
Cat is up-to-date with rabies series. She is up-to-date with tetanus vaccine.
She is a former smoker. She denies alcohol use.
# Cat bite cellulitis of left forearm with possible abscess
-Puncture site is open and draining purulent discharge which was expressed at urgent care and continuing to drain
-X-ray of forearm no evidence of fracture or evidence of bone involvement such as osteomyelitis indicative of cellulitis only
-Blood cultures pending
-Wound culture pending
-Unasyn
-Tylenol, Aleve for pain
10/05
Patient with significant right forearm abscess and fluctuation.
Seen by general surgery status post bedside incision and drainage.
Plan to continue dressing and discharge on oral antibiotics tomorrow.
10/06
Surgery recommending orthopedic consult, pending
10/07
Discharge home today on Augmentin
Essential hypertension
-Continue triamterene/hydrochlorothiazide, telmisartan
Type 2 diabetes
-Continue glyburide, metformin also on semaglutide
-Insulin sliding
Bipolar depression
-Continue Seroquel, citalopram, Vraylar
Restless leg syndrome
-Continue ropinirole, primidone
Full code
DVT prophylaxis�heparin
Regular diet
Anticipated Discharge: Today
Discharge Plan
-
Patient Disposition: Home (Routine Discharge)
Discharge Diagnosis/Procedures: Sepsis secondary to cellulitis caused by cat bite
Diet: 2 Gram Sodium
Activity: No restrictions
Driving Restrictions: As prior to admission
Wound Care: Recommend wet to dry dressing changes twice daily.
Referrals:
NONE,* [Family Provider] -
John Talley MD [Active] - in one to two weeks
Prescriptions:
New
amoxicillin-pot clavulanate 875-125 mg tablet
1 tab PO BID Qty: 14 0RF
ketorolac 10 mg tablet
10 mg PO Q6H PRN (Reason: Pain) Qty: 20 0RF
Rx Instructions:
maximum total duration of 5 days from all oral, intranasal, or parenteral formulations
Continued
primidone 50 mg tablet
100 mg PO BID
citalopram 40 mg tablet
40 mg PO HS
ropinirole 3 mg tablet
3 mg PO HS
quetiapine 100 mg tablet
200 mg PO HS
glyburide-metformin 5-500 mg tablet
1 tab PO BID
ropinirole 2 mg tablet
2 - 3 mg PO BID PRN (Reason: restless legs)
telmisartan 40 mg tablet
40 mg PO DAILY
triamterene-hydrochlorothiazid 37.5-25 mg tablet
1 tab PO DAILY
Vraylar 1.5 mg Capsule
1.5 mg PO DAILY
Ozempic 0.25 mg or 0.5 mg (2 mg/3 mL) Pen Injector
1 mg SC WE
Discontinued
azithromycin 250 mg tablet
250 mg PO DAILY
Discharge Orders:
Discharge Patient (As Directed); Ordered 10/08/23
Ordered By: Roxanne Allen
Discharge Date and Time
Print Language: WALLISIAN
[2023-10-08 12:47] VITALS: BP 122/61
--- NOTE | 2023-10-08 13:06 | CM ---
Met with patient at bedside
Patient reported that she is able to change dressings as instructed
Patient drove herself to the hospital and plans to drive self home
Plan: Discharge to home; no needs
--- NOTE | 2023-10-08 14:22 | W.PN.GS2 ---
Addendum entered and electronically signed by Gigi Floyd MD 10/08/23 14:47:
I saw and examined the patient.
The Leather Stripping Machine Operator's note was reviewed and I agree with the note.
Comment: Wound looks good, no plan for further surgical debridement. Cont W2D. Abx per primary team. F/U wound care clinic 2 weeks.
Original Note:
Today's Communication / Plan
-
BID dressing changes
Assessment / Plan
-
Assessment: 67-year-old right hand dominant diabetic female with cat bite 2 weeks ago and resultant cellulitis/abscess within the subcutaneous tissues to the left wrist.
PPD #2 bedside incision and drainage for more definitive control of the subcutaneous abscess.
Hand surgery evaluated given exposed tendon/muscle
Afebrile, no leukocytosis
Plan:
Wound drainage nonpurulent today/fibrinous
BID dressing changes. Patient instructed on how to preform
C/W antibiotics
Analgesics prn
Continue heparin sq for VTE ppx
Cleared for d/c from surgical standpoint. F/U in 1-2 weeks
Subjective Data
-
Date of Service: October 08, 2023
Patient seen and examined at bedside this am around [address] Floyd. Dressing changed. Less pain than previous.
Objective Data
-
Intake and Output
10/07/23 10/08/23 10/09/23
06:59 06:59 06:59
Intake Total 1000 / 1000 1370 / 1370
Balance 1000 / 1000 1370 / 1370
Intake:
Oral fluids 720 / 720 1080 / 1080
IV fluids (Total) 0 / 0 50 / 50
IV piggybacks 280 / 280 240 / 240
Other:
Number of approximated MODERATE 5 2
amounts of urine
Number of approximated LARGE 7
amounts of urine
Vital Signs
Temp Pulse Resp BP Pulse Ox
97.6 F 78 16 122/61 97
10/08/23 12:47 10/08/23 12:47 10/08/23 12:47 10/08/23 12:47 10/08/23 12:47
Lab Results
10/08/23 07:23
10/06/23 05:50
Calcium 9.5 mg/dl (8.4-10.2) 10/06/23 05:50
Total Bilirubin 0.7 mg/dl (0.2-1.3) 10/05/23 05:46
AST 26 U/L (14-36) 10/05/23 05:46
ALT 20 U/L (0-35) 10/05/23 05:46
Alkaline Phosphatase 57 U/L (38-126) 10/05/23 05:46
Total Protein 6.5 g/dl (6.3-8.2) 10/05/23 05:46
Albumin 3.6 g/dl (3.5-5.0) 10/05/23 05:46
Physical Exam
-
NAD
Left wrist wound changed. Approx 2' long and tunnelling down to exposed tendon/muscles, fibrinous drainage noted and wound cleansed and repacked.
--- NOTE | 2023-10-17 15:41 | PN.CDI ---
CDI
- -
CDI:
Physician Documentation Request
Admit Date: 10/04/23 22:03
Dear Doctor Tiffany,
Please review the following and provide your response in the progress notes.
Clinical Indicators:
Documentation in the record on 10/07 Discharge Summary includes the diagnosis of sepsis. The following clinical information was noted in the record:
- Throughout admission:
- WBC within normal limits
- Tmax 99.9
- HR 98
- RR 10's
- 10/07 DC Summary 'Sepsis secondary to cellulitis caused by cat bite'
- 10/07 PN 'Cat bite cellulitis of left forearm with possible abscess'
Please clarify if sepsis is still an accurate diagnosis and reflective of the patient�s condition, to ensure quality of the medical record:
Sepsis is/was present and is a clinical diagnosis based on (please include this additional support in the medical record)
After careful study sepsis has been ruled out
Other
Recognized standard criteria for this condition and other associated definitions:
�Bacteremia
-Abnormal laboratory test does not indicate a clinically ill patient
�Sepsis
-Systemic manifestations of infection, with 2 or more SIRS criteria which include:
-Fever > 100.4��F or hypothermia < 96.8��F
-Leukocytosis WBC > 12,000 or leukopenia, WBC < 4,000, or > 10% bands
-Tachycardia- > 90 beats/minute
-Tachypnea- RR > 20 breaths/minute or PaCO2 < 32mmHg
Source: [employer] Manual 2013
-Documentation should include the known or suspected organism, and the underlying infection, such as UTI or pneumonia
�Severe Sepsis
-Sepsis with associated acute organ dysfunction, such as renal or respiratory failure
-Documentation should indicate the association between the sepsis and the organ dysfunction
�Septic Shock
-Severe sepsis with associated with circulatory failure, evidenced by hypotension and hypoperfusion
Use of terms such as suspected, likely, concern for, or probable (associated with a specific diagnosis that is being evaluated, monitored, or treated as if it exists) are acceptable and can be coded in the inpatient setting, when documented at the
time of discharge.
Thank you,
Virgil Spaulding RN
CDI Specialist
Please use your independent medical judgment in providing your response.
== END 2023-10-08 13:15 | disposition home or self-care (01) | DRG 603 ==
LOC: 3 WEST ACU 22:03
PROVIDERS: Internal Medicine; Registered Nurse; ADMITTING PHYSICIAN Hospitalist; ATTENDING PHYSICIAN General Practice; CONSULT PHYSICIAN Orthopaedic Surgery; CONSULT PHYSICIAN Surgery; EMERGENCY PHYSICIAN Emergency Medicine
PROC: 0J9H0ZZ Drainage of Left Lower Arm Subcutaneous Tissue and Fascia, Open Approach (ICD-10-PCS; 2023-10-04)
DX: L03.114 Cellulitis of left upper limb (principal); F31.30 Bipolar disorder, current episode depressed, mild or moderate severity, unspecified; L02.414 Cutaneous abscess of left upper limb; S50.872A Other superficial bite of left forearm, initial encounter; G25.81 Restless legs syndrome; B96.89 Other specified bacterial agents as the cause of diseases classified elsewhere; W55.01XA Bitten by cat, initial encounter; E11.9 Type 2 diabetes mellitus without complications; I10 Essential (primary) hypertension; Y93.9 Activity, unspecified; Y92.009 Unspecified place in unspecified non-institutional (private) residence as the place of occurrence of the external cause; Z87.891 Personal history of nicotine dependence; Z79.84 Long term (current) use of oral hypoglycemic drugs; Z79.85 Long-term (current) use of injectable non-insulin antidiabetic drugs
CPT/HCPCS: 73090; 80048; 80053; 82962; 83036; 83605; 85025; 85027; 87040; 87070; 87077; 87205; 99406